=== PATIENT | female | born 1930 | race Caucasian/White ===

== ENCOUNTER → 2018-05-21 | Outpatient (CLI) | payer MEDICARE ==
[2018-05-21 15:51] LABS: HCT (SEDRATE) 41.6 % (34.6-47.8)
== END | disposition home or self-care (01) ==
LOC: CFH 14:58
PROVIDERS: ATTEND Orthopaedic Surgery Adult Reconstructive Orthopaedic Surgery
DX: T84.84XA Pain due to internal orthopedic prosthetic devices, implants and grafts, initial encounter (principal); Z96.651 Presence of right artificial knee joint
CPT/HCPCS: 36415; 85018; 85651; 86140

== ENCOUNTER 2019-11-12 09:29 | Day surgery (SDC) | payer MEDICARE ==
[~2019-11-12] VITALS: Ht 160 cm; Wt 87.0 kg
[2019-11-12] MEDS ORDERED: LIDOCAINE 2%, 20ML ONE (09:33)
== END 2019-11-12 12:39 | disposition home or self-care (01) ==
LOC: CACL 09:29
PROVIDERS: ATTEND Internal Medicine Cardiovascular Disease
DX: I49.8 Other specified cardiac arrhythmias (principal); I50.33 Acute on chronic diastolic (congestive) heart failure; Z88.1 Allergy status to other antibiotic agents; Z88.5 Allergy status to narcotic agent; Z88.8 Allergy status to other drugs, medicaments and biological substances
CPT/HCPCS: 33285; C1764

== ENCOUNTER 2020-03-16 09:43 | Observation (INO) | payer MEDICARE ==
[~2020-03-16] VITALS: Ht 160 cm; Wt 66.5 kg
[2020-03-16] MEDS ORDERED: SODIUM CHLORIDE 0.9% 1,000 ML IV SCH (10:36)
[2020-03-16] MEDS ORDERED: DOCU-131 PO (11:00)
[2020-03-16] MEDS ORDERED: PANT40TA5 PO (11:00)
[2020-03-16] MEDS ORDERED: WARF2.5T32 PO (11:00)
[2020-03-16] MEDS ORDERED: WARF2TAB99 PO (11:00)
[2020-03-16] MEDS ORDERED: CARB200T4 PO (11:00)
[2020-03-16] MEDS ORDERED: SODI1TAB PO (11:00)
[2020-03-16] MEDS ORDERED: AMLO10TA4 PO (11:00)
[2020-03-16] MEDS ORDERED: POTA20TA6 PO (11:00)
[2020-03-16] MEDS ORDERED: FURO-93 PO (11:00)
[2020-03-16] MEDS ORDERED: BENZ-17 PO (11:00)
[2020-03-16] MEDS ORDERED: ATOR40TA PO (11:00)
[2020-03-16] MEDS ORDERED: IPRA3AMP30 NEB (11:00)
[2020-03-16] MEDS ORDERED: CALC-112 PO (11:00)
[2020-03-16] MEDS ORDERED: NYST60PO TP (11:00)
[2020-03-16] MEDS ORDERED: AMIT10TA PO (11:00)
[2020-03-16] MEDS ORDERED: FOLI-17 PO (11:00)
[2020-03-16] MEDS ORDERED: TRAM50TA2 PO (11:00)
[2020-03-16] MEDS ORDERED: ASCO500T93 PO (11:00)
[2020-03-16] MEDS ORDERED: FERR324T5 PO (11:00)
[2020-03-16] MEDS ORDERED: ALBU18HF INH (11:00)
[2020-03-16] MEDS ORDERED: CYAN100028 PO (11:00)
[2020-03-16] MEDS ORDERED: ACET-76 PO (11:00)
[2020-03-16 11:07] LABS: MEAN CORPUSCULAR HEMOGLOBIN 26.9 pg (27.0-34.8); MEAN CORPUSCULAR HGB CONC 31.3 g/dL (32.4-35.8); MEAN CORPUSCULAR VOLUME 86.1 fL (80-100); MEAN PLATELET VOLUME 7.4 fL (7.4-10.4); PLATELET COUNT 280 x10^3/uL (130-400); RED BLOOD COUNT 3.88 x10^6/uL (3.82-5.3); RED CELL DISTRIBUTION WIDTH 13.8 % (9.6-15.2)
[2020-03-16 11:17] LABS: INTERNATIONAL NORMALIZED RATIO 1.09 (0.93-1.1); PROTHROMBIN TIME 11.6 Seconds (9.6-11.5)
[2020-03-16 11:18] LABS: CALCIUM 8.8 mg/dL (8.5-10.1); CREATININE 0.52 mg/dL (0.55-1.02)
[2020-03-16 11:26] LABS: ANION GAP 4 mmol/L (5-15); CHLORIDE 96 mmol/L (98-107)
[2020-03-16 11:47] LABS: BASOPHILS % (AUTO) 0 % (0-1); EOSINOPHILS # (AUTO) 0.08 x10^3/uL (0-0.4); EOSINOPHILS % (AUTO) 2 % (1-7); LYMPHOCYTES # (AUTO) 0.64 x10^3/uL (1-3.4); LYMPHOCYTES % (AUTO) 15 % (22-44); MD SCAN; MONOCYTES # (AUTO) 0.42 x10^3/uL (0.2-0.8); MONOCYTES % (AUTO) 9 % (2-9); NEUTROPHILS # (AUTO) 3.27 x10^3/uL (1.8-6.8); NEUTROPHILS % (AUTO) 74 % (42-75)
[2020-03-16] MEDS ORDERED: FENTANYL PF 100 MCG/2ML ONE (11:54)
[2020-03-16] MEDS ORDERED: CEFAZOLIN PMX 1GM/50ML 50 ML ONE (11:55)
[2020-03-16] MEDS ORDERED: LIDOCAINE 2%, 20ML ONE (11:55)
[2020-03-16] MEDS ORDERED: MIDAZOLAM 1 MG/ML, 5ML ONE (11:55)
[2020-03-16] MEDS ORDERED: CEFAZOLIN 1,000 MG ONE (11:55)
[2020-03-16] MEDS ORDERED: NYSTATIN TOPICAL POWDER 15GM TP PRN (14:00)
[2020-03-16] MEDS ORDERED: ACETAMINOPHEN 500 MG TABLET PO PRN (14:00)
[2020-03-16] MEDS ORDERED: HOLD MEDICATION MC PRN (14:00)
[2020-03-16] MEDS ORDERED: ACETAMINOPHEN 325 MG TABLET PO PRN (14:00)
[2020-03-16] MEDS ORDERED: DOCUSATE 100 MG CAPSULE PO PRN (14:00)
[2020-03-16] MEDS ORDERED: BENZONATATE 100 MG CAPSULE PO PRN (14:00)
[2020-03-16] MEDS ORDERED: HYDROcodone/APAP 5/325 TABLET PO PRN (14:00)
[2020-03-16] MEDS ORDERED: ACETAMINOPHEN 325 MG TABLET ONE (14:31)
[2020-03-16 16:00] VITALS: BP 151/72
[2020-03-16] MEDS: CARBAMAZEPINE 200 MG TABLET PO SCH ×2 (17:09→21:45)
[2020-03-16] MEDS ORDERED: ATORVASTATIN 40 MG TABLET PO SCH ×2 (21:00)
[2020-03-16] MEDS ORDERED: AMITRIPTYLINE 10 MG TABLET PO SCH (21:00)
[2020-03-16] MEDS: SODIUM CHLORIDE FLUSH 10ML SYR IVF SCH (21:46)
[2020-03-16 21:55] VITALS: BP 153/71
[2020-03-16] MEDS: CEFAZOLIN PMX 1GM/50ML 50 ML IVPB SCH ×2 (21:56→23:20)
[2020-03-17] VITALS (19 sets, daily range): BP systolic 50–152; BP diastolic 30–67
[2020-03-17] MEDS ORDERED: SODIUM CHLORIDE 0.9%, 250ML IVBOLUS PRN (03:00)
[2020-03-17] MEDS: CEFAZOLIN PMX 1GM/50ML 50 ML IVPB SCH (06:02)
[2020-03-17] MEDS ORDERED: FUROSEMIDE 20 MG TABLET PO SCH (09:00)
[2020-03-17] MEDS ORDERED: PANTOPRAZOLE 40MG TABLET PO SCH (09:00)
[2020-03-17] MEDS ORDERED: AMLODIPINE 10 MG TAB PO SCH (09:00)
[2020-03-17] MEDS ORDERED: POTASSIUM CHLORIDE 20 MEQ TAB.ER.PRT PO SCH (09:00)
[2020-03-17] MEDS ORDERED: FOLIC ACID 1 MG TABLET PO SCH (09:00)
[2020-03-17] MEDS ORDERED: SODIUM CHLORIDE 1 GM TABLET PO SCH (09:00)
[2020-03-17] MEDS: CARBAMAZEPINE 200 MG TABLET PO SCH (09:24)
[2020-03-17] MEDS: SODIUM CHLORIDE FLUSH 10ML SYR IVF SCH (09:28)
== END 2020-03-17 16:30 ==
LOC: CACL 09:43 → ORIP 13:52 → 5SO 15:47
PROVIDERS: ADMIT Internal Medicine Cardiovascular Disease; ATTEND Internal Medicine Cardiovascular Disease
DX: I49.5 Sick sinus syndrome (principal); R55 Syncope and collapse; I44.30 Unspecified atrioventricular block; E78.5 Hyperlipidemia, unspecified; I10 Essential (primary) hypertension; I63.9 Cerebral infarction, unspecified; Z79.899 Other long term (current) drug therapy; Z79.01 Long term (current) use of anticoagulants; Z86.73 Personal history of transient ischemic attack (TIA), and cerebral infarction without residual deficits; Z86.718 Personal history of other venous thrombosis and embolism
CPT/HCPCS: 33208; 33286; 36415; 71045; 80048; 85025; 85610; 96365; 96366; 99156; 99157; C1779; C1785; C1892; G0378; J0690; J2250; J3010; J3490